=== PATIENT | female | born 1965 | race Caucasian/White ===

== ENCOUNTER 2017-02-10 16:24 | Emergency (ER) | payer BC ==
[~2017-02-10] VITALS: Ht 160 cm; Wt 90.7 kg
[~2017-02-10 16:24] MED LIST: ALPR1TAB PO; ATOR40TA PO; CLIN300C8 PO; CRESTOR40 MG PO; ESCITALOPRAM OX20 MG PO; FEXO1TAB31 PO; FLUT16SP2 NS; HYDR-971 PO; LEVO5TAB29 PO; ONDA4TAB10 PO
[2017-02-10 16:52] VITALS: BP 176/102
--- NOTE | 2017-02-10 17:56 | PHYS DOC ---
Past History Past Medical History: High Cholesterol Past Surgical History: Appendectomy, Spleenectomy Smoking: Cigarettes, Less than 1pk/day Alcohol Use: None Drug Use: None Adult General Chief Complaint Chief Complaint: UPPER EXTREMITY PAIN HPI HPI Patient is a 51-year-old female presenting to the emergency department for evaluation of a note to her right forearm. She has not been taking her Xarelto as prescribed as she wanted to drink wine over the holiday season and now she has is not here and she denies any trauma or overuse. She started taking her medication again she denies any weakness numbness or tingling. Review of Systems Review of Systems Constitutional: Denies fever or chills [] Musculoskeletal: Denies back pain or joint pain [] Integument: Denies rash or skin lesions [] Neurologic: Denies headache, focal weakness or sensory changes [] All other systems were reviewed and found to be within normal limits, except as documented in this note. Allergies Allergies Allergies Coded Allergies Type Severity Reaction Last Updated Verified Amoxicillin Allergy Severe Hives 07/26/13 Yes Penicillins Allergy Severe Hives 07/26/13 Yes Sulfa (Sulfonamide Antibiotics) Allergy Severe Swelling 07/26/13 Yes Physical Exam Physical Exam Constitutional: Well developed, well nourished, no acute distress, non-toxic appearance. [] Extremities: Right forearm with swelling to the medial superior aspect of her forearm. No erythema or induration. Most consistent with small cyst or muscle swelling. Neurologic: Alert and oriented X 3, normal motor function, normal sensory function, no focal deficits noted. [] Psychologic: Affect normal, judgement normal, mood normal. [] Current Patient Data Vital Signs Vital Signs Date Time Temp Pulse Resp B/P (MAP) Pulse Ox O2 Delivery O2 Flow Rate FiO2 02/10/17 16:52 97.9 79 20 95 Room Air EKG EKG [] Radiology/Procedures Radiology/Procedures [] Course & Med Decision Making Course & Med Decision Making Ultrasound negative, told to continue her medications as prescribed follow with primary care provider later this week and come back to the ED with any new worsening symptoms. Dragon Disclaimer Dragon Disclaimer This electronic medical record was generated, in whole or in part, using a voice recognition dictation system. Departure Departure: Impression: Primary Impression: Forearm swelling Disposition: HOME, SELF-CARE Condition: STABLE Referrals: GEOVANNA SHINE MD (PCP) Patient Instructions: Muscle Strain, [id number] DONNY RUTHERFORD DO Feb 10, 2017 17:56
--- NOTE | 2017-02-10 18:22 | RAD ---
Right upper extremity venous duplex study 02/10/2017 CLINICAL HISTORY: Medial right elbow tenderness and swelling with palpable knot. TECHNIQUE: Using a combination of real-time ultrasound imaging and color-flow and pulse Doppler imaging techniques along with graded compression and augmentation, duplex evaluation of the major venous structures of the right upper extremity to include the right subclavian and right internal jugular veins was performed. Multiple images were obtained. FINDINGS: Echogenic nonocclusive thrombus is seen involving the right basilic vein at the level of the right elbow. No additional area of venous thrombosis is seen. IMPRESSION: Thrombus is seen involving the right basilic vein at the level of the right elbow. Electronically signed by: Dave Vail MD (02/10/2017 6:19 PM) [facility]
== END 2017-02-10 19:18 | disposition home or self-care (01) ==
LOC: ER 16:24
DX: R22.31 Localized swelling, mass and lump, right upper limb (principal); E78.00 Pure hypercholesterolemia, unspecified; F17.210 Nicotine dependence, cigarettes, uncomplicated; Z88.1 Allergy status to other antibiotic agents; Z88.0 Allergy status to penicillin; Z88.2 Allergy status to sulfonamides
CPT/HCPCS: 93971; 99284-25

== ENCOUNTER 2017-08-23 14:22 | Emergency (ER) | payer BC ==
[~2017-08-23] VITALS: Ht 160 cm; Wt 95.3 kg
--- NOTE | 2017-08-23 14:52 | PHYS DOC ---
Past History Past Medical History: High Cholesterol Past Surgical History: Appendectomy, Spleenectomy Smoking: Cigarettes, Less than 1pk/day Alcohol Use: None Drug Use: None Adult General Chief Complaint Chief Complaint: HAND PROBLEM HPI HPI 52-year-old female patient with history of hypercoagulation and several DVT and PE with history of previous CVA without remaining neuro deficit and currently on Xarelto complaining of left fourth and fifth finger and hand numbness for the last 2 days as a constant problem that doesn't get better with moving and shaking her hands. Patient states she was at swim pool 3 days ago and leaning on her left hyperextended and on and off all day. Patient denies other neuro deficit, fever and chills, chest pain and shortness of breath. Review of Systems Review of Systems Constitutional: Denies fever or chills [] Eyes: Denies change in visual acuity, redness, or eye pain [] HENT: Denies nasal congestion or sore throat [] Respiratory: Denies cough or shortness of breath [] Cardiovascular: No additional information not addressed in HPI [] GI: Denies abdominal pain, nausea, vomiting, bloody stools or diarrhea [] : Denies dysuria or hematuria [] Musculoskeletal: Denies back pain or joint pain [] Integument: Denies rash or skin lesions [] Neurologic: Denies headache, focal weakness, reports sensory changes [] Endocrine: Denies polyuria or polydipsia [] All other systems were reviewed and found to be within normal limits, except as documented in this note. Allergies Allergies Allergies Coded Allergies Type Severity Reaction Last Updated Verified Amoxicillin Allergy Severe Hives 07/26/13 Yes Penicillins Allergy Severe Hives 07/26/13 Yes Sulfa (Sulfonamide Antibiotics) Allergy Severe Swelling 07/26/13 Yes Physical Exam Physical Exam Constitutional: Well developed, well nourished, no acute distress, non-toxic appearance. [] HENT: Normocephalic, atraumatic, oropharynx moist, no oral exudates, nose normal. [] Eyes: PERRLA, EOMI, conjunctiva normal, no discharge. [] Neck: Normal range of motion, no tenderness, supple, no stridor. [] Cardiovascular:Heart rate regular rhythm, no murmur [] Lungs & Thorax: Bilateral breath sounds clear to auscultation [] Abdomen: Bowel sounds normal, soft, no tenderness, no masses, no pulsatile masses. [] Skin: Warm, dry, no erythema, no rash. [] Back: No tenderness, no CVA tenderness. [] Extremities: No tenderness, no cyanosis, no clubbing, ROM intact, no edema. [] Neurologic: Alert and oriented X 3, normal motor function, subjective decrease of sensation in medial side of left palm and fourth and fifth finger without weakness, no focal deficits noted. [] Psychologic: Affect normal, judgement normal, mood normal. [] EKG EKG [] Radiology/Procedures Radiology/Procedures [[address] [id number] IMAGING REPORT Signed PATIENT: HERBERT CRUZ ACCOUNT: [id number] : 1965 LOCATION: ER AGE: 51 SEX: F EXAM STATUS: REG ER ORD. PHYSICIAN: EDWIN JEFFREY MD REASON: Left hand, arm numbness, headache PROCEDURE: CT HEAD WO CONTRAST CT of the head without contrast, 08/23/2014: HISTORY: Headache, left arm numbness There is mild cerebral atrophy. The ventricles are within normal limits in size. There is no shift of the midline structures. There is no evidence of acute intracranial hemorrhage or mass effect. IMPRESSION: No acute intracranial abnormality is detected. Electronically signed by: Michi Reid MD (08/23/2017 2:59 PM) [facility] DICTATED AND SIGNED BY: MICHI REID MD DATE: 08/23/17 2138 CC: GEOVANNA SHINE MD; EDWIN JEFFREY MD ~ ] Course & Med Decision Making Course & Med Decision Making Pertinent Imaging studies reviewed. (See chart for details) Evolution of patient in ER showed 51-year-old female patient with hypercoagulation condition on Xarelto with complaining of intermittent episodes of numbness of left hand after sustaining of her left wrist hyperextension position. Exam and CT of head was unremarkable except for subjective paresthesias of fourth and fifth fingers. Plan to apply velcro wrist splint and discharge patient home with diagnosis of acute carpal tunnel syndrome with prescription of Medrol Dosepak and instruction to follow with her primary care physician and take [id number] ibuprofen or Naprosyn. Dragon Disclaimer Dragon Disclaimer This electronic medical record was generated, in whole or in part, using a voice recognition dictation system. Departure Departure: Impression: Primary Impression: Acute carpal tunnel syndrome of left wrist Additional Impressions: Paresthesias in left hand Hypercoagulable state Tobacco abuse Tobacco abuse counseling Disposition: HOME, SELF-CARE (at 1533) Condition: STABLE Referrals: GEOVANNA SHINE MD (PCP) Patient Instructions: Carpal Tunnel Syndrome, Paresthesia, Smoking Cessation, Tips For Success Additional Instructions: Take bkme-[id number] ibuprofen or Naprosyn for decrease of inflammation Follow-up with your primary care physician in 3-5 days Return to ER if not getting better Scripts Methylprednisolone (MEDROL) 4 Mg Tab.ds.pk 1 PKG PO UD, #1 PKG Prov: EDWIN JEFFREY MD 08/23/17 Problem Qualifiers EDWIN JEFFREY MD Aug 23, 2017 14:52
--- NOTE | 2017-08-23 15:02 | RAD ---
CT of the head without contrast, 08/23/2014: HISTORY: Headache, left arm numbness There is mild cerebral atrophy. The ventricles are within normal limits in size. There is no shift of the midline structures. There is no evidence of acute intracranial hemorrhage or mass effect. IMPRESSION: No acute intracranial abnormality is detected. Electronically signed by: Michi Reid MD (08/23/2017 2:59 PM) [facility]
[2017-08-23 15:08] VITALS: BP 158/94
[2017-08-23] MEDS ORDERED: METH4TAB2 PO (15:35)
== END 2017-08-23 15:40 | disposition home or self-care (01) ==
LOC: ER 14:22
DX: G56.02 Carpal tunnel syndrome, left upper limb (principal); R20.2 Paresthesia of skin; D68.59 Other primary thrombophilia; E78.00 Pure hypercholesterolemia, unspecified; F17.210 Nicotine dependence, cigarettes, uncomplicated; Z71.6 Tobacco abuse counseling; Z88.0 Allergy status to penicillin; Z88.1 Allergy status to other antibiotic agents; Z88.2 Allergy status to sulfonamides
CPT/HCPCS: 29125; 70450; 99284

== ENCOUNTER 2019-06-10 02:30 | Observation (INO) | payer BC ==
[~2019-06-10] VITALS: Ht 160 cm; Wt 102.6 kg
[~2019-06-10 02:30] MED LIST changes: +HYDR-3165 PO; -HYDR-971 PO; +METH4TAB2 PO
--- NOTE | 2019-06-10 02:43 | PHYS DOC ---
Past History Past Medical History: CVA, DVT, High Cholesterol, Hypertension (DURGA ROMANO DO) Past Surgical History: Appendectomy, , Tonsillectomy Past Surgical History bariatric sleeve (DURGA ROMANO DO) Smoking: Cigarettes, Less than 1pk/day Alcohol Use: Occasionally Drug Use: None (DURGA ROMANO DO) General Adult EDM: Chief Complaint: CHEST PAIN HPI: HPI: Patient is a 53 year old female who presents for evaluation of left-sided chest pain rated 7/10 on arrival. Onset about 1 hour prior to arrival and woke her from sleep. She states it started in her back and then radiates to the front. She has some shortness of air and is very anxious on arrival. Furthermore she is complaining of some numbness to her left arm. Patient has multiple cardiac risk factors as well as a prior history of a blood clot that went to her brain. She has hypertension, hyperlipidemia and is a smoker. Furthermore patient has a history of prior bariatric sleeve (DURGA ROMANO DO) Review of Systems: Review of Systems: Constitutional: Denies fever or chills Eyes: Denies change in visual acuity HENT: Denies nasal congestion or sore throat Respiratory: Denies cough has shortness of breath Cardiovascular: Has chest pain no edema GI: Denies abdominal pain, nausea, vomiting, bloody stools or diarrhea : Denies dysuria Musculoskeletal: has left side back pain no joint pain Integument: Denies rash Neurologic: Denies headache, focal weakness or sensory changes Endocrine: Denies polyuria or polydipsia Lymphatic: Denies swollen glands Psychiatric: Denies depression or anxiety (DURGA ROMANO DO) Heart Score: HEART Score for Chest Pain: HEART Score for Chest Pain Response (Comments) Value History Slighlty/Non-Suspicious 0 ECG Normal 0 Age >45 - < 65 1 Risk Factors >3 Risk Factors or Hx CAD 2 Troponin < Normal Limit 0 Total 3 Risk Factors: Risk Factors: DM, Current or recent (<one month) smoker, HTN, HLP, family history of CAD, obesity. Risk Scores: Score 0 - 3: 2.5% MACE over next 6 weeks - Discharge Home Score 4 - 6: 20.3% MACE over next 6 weeks - Admit for Clinical Observation Score 7 - 10: 72.7% MACE over next 6 weeks - Early Invasive Strategies (DURGA ROMANO DO) Allergies: Allergies: Allergies Coded Allergies Type Severity Reaction Last Updated Verified Amoxicillin Allergy Severe Hives 07/26/13 Yes Penicillins Allergy Severe Hives 07/26/13 Yes Sulfa (Sulfonamide Antibiotics) Allergy Severe Swelling 07/26/13 Yes (DURGA ROMANO DO) Physical Exam: PE: Constitutional: Well developed, well nourished, moderate distress, non-toxic appearance. [] HENT: Normocephalic, atraumatic, bilateral external ears normal, oropharynx moist, no oral exudates, nose normal. [] Eyes: PERRL, EOMI, conjunctiva normal, no discharge. [] Neck: Normal range of motion, no tenderness, supple, no stridor. [] Cardiovascular:Heart rate regular rhythm, no murmur [] Lungs & Thorax: Bilateral breath sounds clear to auscultation [] Abdomen: Bowel sounds normal, soft, no tenderness, no masses, no pulsatile masses. [] Skin: Warm, dry, no erythema, no rash. [] Back: No tenderness, no CVA tenderness. [] Extremities: No tenderness, no cyanosis, ROM intact, no edema. [] Neurologic: Alert and oriented, normal motor function, normal sensory function, no focal deficits noted. [] Psychologic: Highly anxious. [] (DURGA ROMANO DO) Current Patient Data: Labs: Laboratory Tests Test 06/10/19 03:00 White Blood Count 8.8 x10^3/uL Red Blood Count 4.03 x10^6/uL Hemoglobin 12.7 g/dL Hematocrit 38.2 % Mean Corpuscular Volume 95 fL Mean Corpuscular Hemoglobin 32 pg Mean Corpuscular Hemoglobin Concent 33 g/dL Red Cell Distribution Width 16.4 % Platelet Count 366 x10^3/uL Neutrophils (%) (Auto) 55 % Lymphocytes (%) (Auto) 31 % Monocytes (%) (Auto) 7 % Eosinophils (%) (Auto) 4 % Basophils (%) (Auto) 3 % Neutrophils # (Auto) 4.8 x10^3uL Lymphocytes # (Auto) 2.7 x10^3/uL Monocytes # (Auto) 0.6 x10^3/uL Eosinophils # (Auto) 0.3 x10^3/uL Basophils # (Auto) 0.2 x10^3/uL Sodium Level 141 mmol/L Potassium Level 4.1 mmol/L Chloride Level 106 mmol/L Carbon Dioxide Level 23 mmol/L Anion Gap 12 Blood Urea Nitrogen 9 mg/dL Creatinine 0.7 mg/dL Estimated GFR (Cockcroft-Gault) 87.2 BUN/Creatinine Ratio 13 Glucose Level 128 mg/dL Calcium Level 8.2 mg/dL Total Bilirubin 0.3 mg/dL Aspartate Amino Transf (AST/SGOT) 31 U/L Alanine Aminotransferase (ALT/SGPT) 31 U/L Alkaline Phosphatase 88 U/L Troponin I Quantitative < 0.017 ng/mL [id number] Natriuretic Peptide 109 pg/mL Total Protein 7.4 g/dL Albumin 2.9 g/dL Albumin/Globulin Ratio 0.6 Lipase 520 U/L Current Medications Medications (Trade) Dose Ordered Sig/Emily Route PRN Reason Start Time Stop Time Status Last Admin Dose Admin Aspirin (Aspirin Chewable) 324 mg 1X ONCE PO 06/10/19 03:00 06/10/19 03:01 DC 06/10/19 03:01 Sodium Chloride 1,000 ml @ 75 mls/hr 1X ONCE IV 06/10/19 03:00 06/10/19 16:19 06/10/19 03:02 Lorazepam (Ativan) 1 mg 1X ONCE PO 06/10/19 03:00 06/10/19 03:01 DC 06/10/19 03:00 Lorazepam (Ativan) 1 mg STK-MED ONCE .ROUTE 06/10/19 02:58 06/10/19 02:58 DC Morphine Sulfate (Morphine 4mg Syringe) 4 mg 1X ONCE IV 06/10/19 03:30 06/10/19 04:04 DC 06/10/19 03:43 Iohexol (Omnipaque 350 Mg/ml) 100 ml 1X ONCE IV 06/10/19 04:00 06/10/19 04:04 DC 06/10/19 04:16 Info (Do NOT chart on this entry -- for MONITORING) 1 each PRN DAILY PRN MC SEE COMMENTS 06/10/19 04:15 06/12/19 04:14 Furosemide (Lasix) 40 mg 1X ONCE IVP 06/10/19 05:45 06/10/19 05:46 DC 06/10/19 05:38 Methylprednisolone Sodium Succinate (SOLU-Medrol 125MG VIAL) 125 mg 1X ONCE IV 06/10/19 05:45 06/10/19 05:46 DC 06/10/19 05:38 Fentanyl Citrate (Fentanyl 2ml Vial) 75 mcg 1X ONCE IVP 06/10/19 05:45 06/10/19 05:46 DC 06/10/19 05:39 (DURGA ROMANO DO) EKG: EKG: EKG read at 0244AM. Shows sinus tachycardia rate 101, essentially no other acute findings, not STEMI (DURGA ROMANO DO) Radiology/Procedures: Radiology/Procedures: [address] [id number] IMAGING REPORT Signed PATIENT: HERBERT CRUZ ACCOUNT: [id number] : 1965 LOCATION: ER AGE: 53 SEX: F EXAM STATUS: REG ER ORD. PHYSICIAN: DURGA ROMANO DO REASON: left chest pain PROCEDURE: CHEST AP ONLY Study: CR CHEST AP ONLY Indication: Left-sided chest pain. Comparison: 08/26/2015 Findings: Unchanged prominence of the cardiomediastinal silhouette. Slightly more pronounced central vasculature and interstitial markings from the comparison. No layering effusion, lobar infiltrate or pneumothorax. Impression: Constellation of findings raising the question of mild volume overload/congestive heart failure. Electronically signed by: MISAEL LAYTON MD (06/10/2019 3:04 AM) [id number] DICTATED AND SIGNED BY: MISAEL LAYTON MD DATE: 06/10/19303 CC: GEOVANNA SHINE MD; DURGA ROMANO DO ~ (DURGA ROMANO DO) Radiology/Procedures: [address] [address] IMAGING REPORT Signed PATIENT: HERBERT CRUZ ACCOUNT: [id number] : 1965 LOCATION: ER AGE: 53 SEX: F EXAM STATUS: REG ER ORD. PHYSICIAN: DURGA ROMANO DO REASON: Omni 350,100ml fem line.Lt side chest pain radiate to back PROCEDURE: CT ANGIO CHEST ABD PELVIS STUDY: CT angiography of the chest, abdomen and pelvis. INDICATION: Left-sided chest pain radiating to the back. COMPARISON: None. TECHNIQUE: Helical CT angiography of the chest, abdomen and pelvis performed after the intravenous administration of 99 cc Omnipaque 350. Coronal and sagittal 3D MIP reconstructions were obtained. One or more of the following individualized dose reduction techniques were utilized for this examination: 1. Automated exposure control 2. Adjustment of the mA and/or kV according to patient size 3. Use of iterative reconstruction technique. FINDINGS: CHEST: No aortic dissection or aneurysm throughout the chest. Scattered calcified and noncalcified atheromatous plaque to include the proximal great vessels. Normal main pulmonary artery caliber. Though not fully assessed by technique, no central pulmonary embolism is seen. Small amount of fluid attenuation within a portion of the esophagus. No focal wall thickening. Unremarkable gastroesophageal junction. Several prominent mediastinal and hilar lymph nodes. The largest lymph node is seen at the right hilum on image 37 series 2 measuring 1.4 cm short axis. Pretracheal lymph nodes near the gina measuring around 1 cm short axis. Lymph node medial to the bronchus intermedius on image 42 series 10 measures 1.2 cm short axis. Mild paraseptal emphysema more so than centrilobular emphysema. A few millimetric pulmonary nodules are identified such as left upper lobe on image 58 series 3 measuring 3 mm. A pleural-based nodular focus at the lateral left upper lobe on image 47 series 13 measures 4 mm. Very small pleural effusion on the left with mild overlying volume loss. Scattered mild groundglass haziness involving both lungs but without a confluent airspace opacity. No pathologic axillary lymph nodes. The visualized thyroid is unremarkable. ABDOMEN/PELVIS: No aneurysmal dilatation or dissection of the abdominal aorta or involving the iliac arteries/proximal femoral arteries. Right sided common femoral vein approach central venous catheter. Multifocal atheromatous plaque. No stenosis at the aortic branch vessel ostia. Extensive hepatic low-attenuation typical of hepatic steatosis. Irregular attenuation at the hepatic dome does not appear masslike and is favored secondary to small areas of fatty sparing. Within normal limits gallbladder, pancreas and adrenal glands. The spleen is absent. No acute abnormality seen to involve the kidneys. Artifact seen along the inferior pole of the left kidney. No hydroureteronephrosis. Unremarkable bladder. Left ovarian cystic focus measuring up to 3 cm. A few colonic diverticuli without findings of diverticulitis. The appendix is surgically absent. Nonobstructed small bowel. Surgical changes along the greater curvature of the stomach. No discrete gastric abnormality but overall the stomach is not well assessed due to underdistention. Mildly prominent but not pathologically enlarged central upper abdominal lymph nodes. Prominent iliac chain lymph nodes bilaterally such as on the left, image 59 series 10 measuring 1.5 cm, but with maintained fatty babita. Trace soft tissue gas with surrounding edema/hemorrhage at the site of central line insertion. The extent of these findings is within normal limits for catheter placement. No free abdominopelvic fluid or air. Fat-containing supraumbilical hernias without complicating features. No acute or aggressive osseous process. Grade 1 anterolisthesis of L4 on L5 in the setting of advanced facet degeneration. Lower lumbar central canal stenosis greatest at L4-L5 which appears to be at least moderate in severity. IMPRESSION: 1. No aortic dissection or aneurysm. 2. Very small pleural effusion on the left with mild overlying volume loss. 3. Emphysematous changes of the lungs. A few millimetric pulmonary nodules are seen bilaterally none of which measure large enough for dedicated follow-up per Fleischner criteria. If the patient meets screening guidelines, annual low dose CT is recommended. 4. Several mildly enlarged mediastinal and hilar lymph nodes. A few prominent inguinal lymph nodes are present as well but maintained fatty babita. In the absence of a known malignancy these are presumably benign but are ultimately indeterminate. Follow-up CT could be performed to confirm stability such as in 6 months. 5. Hepatic steatosis. Irregular attenuation at the hepatic dome is not masslike and favored secondary to fatty sparing. 6. Left adnexal cystic structure presumably ovarian in origin and measuring up to 3 cm. If the patient is postmenopausal consider 3-6 month ultrasound follow-up to recharacterize. 7. Additional chronic findings as above. Electronically signed by: MISAEL LAYTON MD (06/10/2019 6:59 AM) [id number] DICTATED AND SIGNED BY: MISAEL LAYTON MD DATE: 06/10/19 0659 CC: GEOVANNA SHINE MD; LEXI PATIÑO DO; DURGA ROMANO DO ~ (LEXI PATIÑO DO) Course & Med Decision Making: Course & Med Decision Making Pertinent Labs and Imaging studies reviewed. (See chart for details) 0330 stable, minimal improvement of chest discomfort but still having left-sided pain. She states it still starts in her back and radiates to the front. It is moderately worse with movement. Will likely CT patient's chest once chemistry results known. Dose of morphine ordered 0455 Initial attempt to get CT scan failed when the IV blew. Multiple attempts to place peripheral lines failed. Pt will need a central line. Pt did consent to this procedure. 0530 Stable, TLC central line placed right femoral vein successfully. Will be getting CT scan chest/abd/pelvis shortly. IV solumedrol 125mg, Lasix 40mg IV, fentanyl 75mcg. SBP 170s at this time. 0600 Care of pt assumed by Dr. Lexi Patiño at shift change (DURGA ROMANO DO) Dragon Disclaimer: Juan [place] Disclaimer: This electronic medical record was generated, in whole or in part, using a voice recognition dictation system. (DURGA ROMANO DO) Departure Departure: Impression: Primary Impression: Left-sided chest pain Additional Impressions: Elevated lipase Elevated blood pressure reading Disposition: ADMITTED INPATIENT Admitting Physician: Kuldeep Mei (DURGA ROMANO DO) Admitting Physician: Kuldeep Mei (LEXI PATIÑO DO) Condition: STABLE Referrals: GEOVANNA SHINE MD (PCP) Central Line Central Line : Central Line Lumen: triple Central Line Procedure: betadine prep, sterile drapes applied, sterile dressing applied Central Line Postion: femoral (R) Anesthesia: local cc's of anesthesia: 5 Complications: none Central Line Post Position: sutured, good blood return Progress , pt signed consent, good blood return all 3 lumens with dark nonpulsatile blood return, cleared for clinical use for the CT scan (DURGA ROMANO DO) DURGA ROMANO DO June 10, 2019 02:43 LEXI PATIÑO DO June 10, 2019 07:13
[2019-06-10 02:47] VITALS: BP 172/105
--- NOTE | 2019-06-10 02:48 | EKG ---
[address] [address] Test Date: 2019-06-10 Test Time: 02:41:10 Pat Name: HERBERT CRUZ Department: Room: Gender: F Director [employer]: : 1965 Requested By: DURGA ROMANO Order Number: [id number] Reading MD: Ubaldo Harrington Measurements Intervals [place] Rate: 101 P: 58 WA: 152 QRS: 6 QRSD: 80 T: 43 QT: 332 QTc: 431 Interpretive Statements SINUS TACHYCARDIA Electronically Signed On 06-10-2019 14:07:01 CDT by Ubaldo Harrington
[2019-06-10] MEDS ORDERED: LORazepam 1 MG TABLET ONE (02:58)
[2019-06-10] MEDS ORDERED: LORazepam 1 MG TABLET PO ONE (03:00)
[2019-06-10] MEDS ORDERED: IV NORMAL SALINE 1,000ML 1,000 ML IV ONE (03:00)
[2019-06-10] MEDS ORDERED: ASPIRIN CHEWABLE 81 MG TABLET. PO ONE (03:00)
--- NOTE | 2019-06-10 03:07 | RAD ---
Study: CR CHEST AP ONLY Indication: Left-sided chest pain. Comparison: 08/26/2015 Findings: Unchanged prominence of the cardiomediastinal silhouette. Slightly more pronounced central vasculature and interstitial markings from the comparison. No layering effusion, lobar infiltrate or pneumothorax. Impression: Constellation of findings raising the question of mild volume overload/congestive heart failure. Electronically signed by: MISAEL LAYTON MD (06/10/2019 3:04 AM) [id number]
[2019-06-10 03:14] LABS: BASO # 0.2 x10^3/uL (0.0-0.2); BASO % 3 % (0-3); EOS # 0.3 x10^3/uL (0.0-0.7); EOS % 4 % (0-3); HEMATOCRIT 38.2 % (36.0-47.0); HEMOGLOBIN 12.7 g/dL (12.0-15.5); LYMPH # 2.7 x10^3/uL (1.0-4.8); LYMPH % 31 % (24-48); MEAN CORPUSCULAR HEMOGLOBIN 32 pg (25-35); MEAN CORPUSCULAR HGB CONC 33 g/dL (31-37); MEAN CORPUSCULAR VOLUME 95 fL (79-100); MONO # 0.6 x10^3/uL (0.0-1.1); MONO % 7 % (0-9); NEUT # 4.8 x10^3uL (1.8-7.7); NEUT % 55 % (31-73); PLATELET COUNT 366 x10^3/uL (140-400); RED BLOOD COUNT 4.03 x10^6/uL (3.50-5.40); RED CELL DISTRIBUTION WIDTH 16.4 % (11.5-14.5); WHITE BLOOD COUNT 8.8 x10^3/uL (4.0-11.0)
[2019-06-10] MEDS ORDERED: MORPHINE SULFATE 4 MG/ML DISP.SYRIN. IV ONE (03:30)
[2019-06-10 03:45] LABS: ALBUMIN 2.9 g/dL (3.4-5.0); ALBUMIN/GLOBULIN RATIO 0.6 (1.0-1.7); CALCIUM 8.2 mg/dL (8.5-10.1); CREATININE 0.7 mg/dL (0.6-1.0); GFR 87.2; TOTAL BILIRUBIN 0.3 mg/dL (0.2-1.0); TOTAL PROTEIN 7.4 g/dL (6.4-8.2)
[2019-06-10 03:46] LABS: POTASSIUM 4.1 mmol/L (3.5-5.1)
[2019-06-10] MEDS ORDERED: IOHEXOL 350 MG/ML 100 ML VIAL. IV ONE (04:00)
[2019-06-10] MEDS ORDERED: CONTRAST GIVEN MC PRN (04:15)
[2019-06-10] MEDS ORDERED: methylPREDNISolone SOD SUCC PF 125 MG/2 ML VIAL. IV ONE (05:45)
[2019-06-10] MEDS ORDERED: FUROSEMIDE 40 MG/4 ML VIAL IVP ONE (05:45)
[2019-06-10] MEDS ORDERED: EZET10TA49 PO (06:51)
[2019-06-10] MEDS ORDERED: ALPR-140 PO (06:51)
[2019-06-10] MEDS ORDERED: ARIP2TAB17 PO (06:51)
[2019-06-10] MEDS ORDERED: ROSU40TA22 PO (06:51)
[2019-06-10] MEDS ORDERED: OMEP40CA45 PO (06:51)
[2019-06-10] MEDS ORDERED: LOSA100T14 PO (06:51)
[2019-06-10] MEDS ORDERED: METO50TA29 PO (06:51)
[2019-06-10] MEDS ORDERED: LEVO5TAB2 PO (06:51)
[2019-06-10] MEDS ORDERED: ESCI20TA2 PO (06:51)
[2019-06-10] MEDS ORDERED: AMLO5TAB10 PO (06:51)
[2019-06-10] MEDS ORDERED: RIVA20TA2 PO (06:51)
--- NOTE | 2019-06-10 07:02 | RAD ---
STUDY: CT angiography of the chest, abdomen and pelvis. INDICATION: Left-sided chest pain radiating to the back. COMPARISON: None. TECHNIQUE: Helical CT angiography of the chest, abdomen and pelvis performed after the intravenous administration of 99 cc Omnipaque 350. Coronal and sagittal 3D MIP reconstructions were obtained. One or more of the following individualized dose reduction techniques were utilized for this examination: 1. Automated exposure control 2. Adjustment of the mA and/or kV according to patient size 3. Use of iterative reconstruction technique. FINDINGS: CHEST: No aortic dissection or aneurysm throughout the chest. Scattered calcified and noncalcified atheromatous plaque to include the proximal great vessels. Normal main pulmonary artery caliber. Though not fully assessed by technique, no central pulmonary embolism is seen. Small amount of fluid attenuation within a portion of the esophagus. No focal wall thickening. Unremarkable gastroesophageal junction. Several prominent mediastinal and hilar lymph nodes. The largest lymph node is seen at the right hilum on image 37 series 2 measuring 1.4 cm short axis. Pretracheal lymph nodes near the gina measuring around 1 cm short axis. Lymph node medial to the bronchus intermedius on image 42 series 10 measures 1.2 cm short axis. Mild paraseptal emphysema more so than centrilobular emphysema. A few millimetric pulmonary nodules are identified such as left upper lobe on image 58 series 3 measuring 3 mm. A pleural-based nodular focus at the lateral left upper lobe on image 47 series 13 measures 4 mm. Very small pleural effusion on the left with mild overlying volume loss. Scattered mild groundglass haziness involving both lungs but without a confluent airspace opacity. No pathologic axillary lymph nodes. The visualized thyroid is unremarkable. ABDOMEN/PELVIS: No aneurysmal dilatation or dissection of the abdominal aorta or involving the iliac arteries/proximal femoral arteries. Right sided common femoral vein approach central venous catheter. Multifocal atheromatous plaque. No stenosis at the aortic branch vessel ostia. Extensive hepatic low-attenuation typical of hepatic steatosis. Irregular attenuation at the hepatic dome does not appear masslike and is favored secondary to small areas of fatty sparing. Within normal limits gallbladder, pancreas and adrenal glands. The spleen is absent. No acute abnormality seen to involve the kidneys. Artifact seen along the inferior pole of the left kidney. No hydroureteronephrosis. Unremarkable bladder. Left ovarian cystic focus measuring up to 3 cm. A few colonic diverticuli without findings of diverticulitis. The appendix is surgically absent. Nonobstructed small bowel. Surgical changes along the greater curvature of the stomach. No discrete gastric abnormality but overall the stomach is not well assessed due to underdistention. Mildly prominent but not pathologically enlarged central upper abdominal lymph nodes. Prominent iliac chain lymph nodes bilaterally such as on the left, image 59 series 10 measuring 1.5 cm, but with maintained fatty babita. Trace soft tissue gas with surrounding edema/hemorrhage at the site of central line insertion. The extent of these findings is within normal limits for catheter placement. No free abdominopelvic fluid or air. Fat-containing supraumbilical hernias without complicating features. No acute or aggressive osseous process. Grade 1 anterolisthesis of L4 on L5 in the setting of advanced facet degeneration. Lower lumbar central canal stenosis greatest at L4-L5 which appears to be at least moderate in severity. IMPRESSION: 1. No aortic dissection or aneurysm. 2. Very small pleural effusion on the left with mild overlying volume loss. 3. Emphysematous changes of the lungs. A few millimetric pulmonary nodules are seen bilaterally none of which measure large enough for dedicated follow-up per Fleischner criteria. If the patient meets screening guidelines, annual low dose CT is recommended. 4. Several mildly enlarged mediastinal and hilar lymph nodes. A few prominent inguinal lymph nodes are present as well but maintained fatty babita. In the absence of a known malignancy these are presumably benign but are ultimately indeterminate. Follow-up CT could be performed to confirm stability such as in 6 months. 5. Hepatic steatosis. Irregular attenuation at the hepatic dome is not masslike and favored secondary to fatty sparing. 6. Left adnexal cystic structure presumably ovarian in origin and measuring up to 3 cm. If the patient is postmenopausal consider 3-6 month ultrasound follow-up to recharacterize. 7. Additional chronic findings as above. Electronically signed by: MISAEL LAYTON MD (06/10/2019 6:59 AM) [id number]
[2019-06-10 07:04] LABS: BACTERIA,URINE 0 /HPF (0-FEW); BILIRUBIN,URINE NEG (NEG); CLARITY,URINE CLEAR; COLOR,URINE STRAW; GLUCOSE,URINE NEG (NEG); NITRITE,URINE NEG (NEG); RBC,URINE 0 /HPF (0-2); SQUAMOUS EPITHELIAL CELL,UR OCC /LPF; UROBILINOGEN,URINE 0.2 mg/dL (0.2 mg/dL); WBC,URINE 0 /HPF (0-4)
--- NOTE | 2019-06-10 09:55 | HP ---
ADMIT DATE: 06/10/2019 OUTPATIENT EMERGENCY ROOM NOTE CHIEF COMPLAINT: Chest pain. HISTORY OF PRESENT ILLNESS: This is a 53-year-old female, who went to the ED with new onset of chest pain at rest, right-sided, sharp in nature with some associated shortness of breath. The patient has a history of previous TIAs. She is on rivaroxaban. She is a smoker. There is no family history of heart disease. After the evaluation, I was asked to admit her to the hospitalist service. I did go see her in the Emergency Department. PHYSICAL EXAMINATION: GENERAL: When I saw her, this is a pleasant, middle-aged female. VITAL SIGNS: Initial blood pressure was 170/100. It had come down to 150 mmHg. She was afebrile, heart rate 98 and regular. HEENT: Head is without trauma. Pupils are reactive. Sclerae nonicteric. The oropharynx was clear. NECK: Supple, no bruits. LUNGS: Otherwise clear. CARDIOVASCULAR: Showed regular heart tones. No obvious gallops. Peripheral pulses are palpable and full. ABDOMEN: Obese, protuberant. No organomegaly. Bowel sounds are hypoactive. EXTREMITIES: Showed no cyanosis or edema. NEUROLOGIC: Focally intact. Speech is fluent. PERTINENT LABORATORY AND X-RAY STUDIES: Her cardiac enzymes were negative for myocardial necrosis. Her hemoglobin was 12.7 g/dL with a white count of 8800. Chemistry panel unremarkable. Nonfasting blood sugar 128. First set of cardiac enzymes negative for coronary ischemia. The EKG was nondiagnostic. She did have a CT of the chest. There is no dissection identified. Mild paraseptal emphysema is seen. There is couple of reactive lymph nodes noted. These are in the mediastinum and hilar lymph node section. Abdomen and pelvis was fairly unremarkable. She also had hepatic steatosis, some reactive lymph nodes, left adrenal cyst. ASSESSMENT: 1. A 53-year-old female smoker with atypical chest pain. 2. History of old transient ischemic attacks. 3. The patient has history of previous splenectomy. 4. Chronic obstructive pulmonary disease due to tobacco use. 5. Underlying depression with anxiety. PLAN: I had seen the patient and was getting ready to admit her for further Cardiology evaluation. In speaking with Cardiology office, because today is Thursday, they would not be able to see her and complete her workup until the following Thursday. Because of the COVID-19 coronavirus epidemic, the patient is adamant about not wanting to stay in the hospital over the weekend. Therefore, arrangements were made for to discharge her home. She will have the stress test as an evaluation next Thursday. We will get this scheduled and coordinated with Cardiology services. She is asymptomatic and right now, there is no evidence of ischemia. She is agreeable with this plan. There are no changes on meds. She was seen by me and arrangements were then made for Cardiology followup for cardiac workup as an outpatient. MARKELL FRAGA MD DR: MANJINDER/vijay JOB#: [id number] / [id number]
--- NOTE | 2019-06-10 11:17 | NUR ---
Patient was going to be admitted to the unit with a diagnosis of chest pain but did not want to stay if the recommended stress test was not going to be completed today as she did not want to stay at the hospital over the weekend. The patient was told that we could not guarantee that the test would be completed for various factors and depts that would be involved in the testing process so the patient stated she did not wanted to be admitted. Patient was discharged from the ER and never was admitted to the unit. Therefore a 2 day stress test was scheduled for the patient on Thursday06/13/2019 at [facility] at 9:00 am.
== END 2019-06-10 11:17 | disposition home or self-care (01) ==
LOC: ER 02:30 → 1 SOUTH 08:59
PROVIDERS: ADMIT Hospitalist; ATTEND Hospitalist
DX: R07.89 Other chest pain (principal); J44.9 Chronic obstructive pulmonary disease, unspecified; I25.10 Atherosclerotic heart disease of native coronary artery without angina pectoris; F41.8 Other specified anxiety disorders; E78.00 Pure hypercholesterolemia, unspecified; I10 Essential (primary) hypertension; F17.210 Nicotine dependence, cigarettes, uncomplicated; E78.5 Hyperlipidemia, unspecified; K76.0 Fatty (change of) liver, not elsewhere classified; Z86.73 Personal history of transient ischemic attack (TIA), and cerebral infarction without residual deficits; Z90.81 Acquired absence of spleen
CPT/HCPCS: 36415; 71045; 71275; 74174; 80053; 81001; 83690; 83880; 84484; 85025; 85610; 85730; 93005; 96374; 96375; 99285; G0378; J1940; J2270; J2930; J3010; Q9967; G0379; J7030